=== PATIENT | male | born 1955 | race Caucasian/White ===

== ENCOUNTER 2016-09-13 15:33 | Emergency (ER) | payer OTHER ==
[~2016-09-13] VITALS: Ht 157.5 cm; Wt 110.0 kg
[2016-09-13 15:36] VITALS: BP 136/73; PULSE 100; RESP 18; TEMP 98.1; O2SAT 93
--- NOTE | 2016-09-13 16:27 | PD ---
HPI Chief Complaint: Cold / Flu Symptoms Time Seen by Provider: 16:27 Travel History International Travel<30 days: No Contact w/Intl Traveler<30days: No Traveled to known affect area: No History of Present Illness HPI 61-year-old male presents to the emergency Department with complaint of cough, nasal congestion, throat irritation, headache, body aches since Sunday. Reports cough exacerbations that caused him to become short of breath. Denies shortness of breath on exertion. Denies chest pain. Denies hemoptysis. Has history of blood clots in his leg 20 years ago. Denies anticoagulants. Did travel approximately 16 hours by vehicle on Sunday. Symptoms started Sunday after arrival. Denies leg edema or pain. Reports feeling cold sweats. Has not taken his temperature and cannot reported MAXIMUM TEMPERATURE. Denies wheezing. Started taking a Z-Jorge on Sunday that he was given with no improvement in symptoms. Has not taken any other medications or tried any treatments to alleviate symptoms. Did not receive a flu vaccine. No known allergies. Has primary care provider back home. History of diabetes type 2 and is on metformin. No other modifying factors or associated signs and symptoms. PFSH Past Medical History Diabetes: Yes Social History Tobacco Use: No Allergies-Medications (Allergen,Severity, Reaction): Coded Allergies: No Known Allergies (Unverified , 09/13/16) Reported Meds & Prescriptions Reported Meds & Active Scripts Active Ibuprofen 600 Mg Tab 600 Mg PO Q8HR PRN Nasonex Nasal [place] (Mometasone Furoate) 50 Mcg/Act Naspr 2 [place] EACH NARE DAILY PRN Tessalon Perles (Benzonatate) 100 Mg Cap 100 Mg PO TID PRN Deltasone (Prednisone) 20 Mg Tab 40 Mg PO DAILY 5 Days Proair Hfa 8.5 GM Inh (Albuterol Sulfate) 90 Mcg/Act Aer 2 Puff INH Q4-6H PRN 108 mcg/actuation Reported Ambien (Zolpidem Tartrate) 5 Mg Tab 5 Mg PO HS PRN Glucophage (Metformin HCl) 500 Mg Tab 500 Mg PO DAILY With a meal Review of Systems Except as stated in HPI: all other systems reviewed are Neg Physical Exam Narrative GENERAL: Well-nourished, well-developed male patient, in no acute distress SKIN: Warm and dry. No rash. HEAD: Atraumatic. Normocephalic. EYES: Pupils equal and round at 3 mm with brisk reaction. No scleral icterus. No injection or drainage. PERRLA. ENT: Mucosa pink and moist. No erythema or exudates. No uvular edema. No uvular , palatal, or tonsillar deviation. Airway patent. EARS: Bilateral pinnae and external canals appear within normal limits. Bilateral tympanic membranes without erythema, dullness or perforation. NECK: Trachea midline. No lymphadenopathy. CARDIOVASCULAR: Regular rate and rhythm. No murmur appreciated. RESPIRATORY: No accessory muscle use. Clear to auscultation and decreased in bilateral bases. Breath sounds equal bilaterally. GASTROINTESTINAL: Abdomen soft, non-tender, nondistended. Hepatic and splenic margins not palpable. Bowel sounds are active 4 quadrants. MUSCULOSKELETAL: No obvious deformities. No clubbing. No cyanosis. No edema. NEUROLOGICAL: Awake and alert. Oriented 3. No obvious cranial nerve deficits. Motor grossly within normal limits. Normal speech. Moves all extremities. 5/5 strength to all extremities. PSYCHIATRIC: Appropriate mood and affect; insight and judgment normal. Data Data Last Documented VS Vital Signs Date Time Temp Pulse Resp B/P Pulse Ox O2 Delivery O2 Flow Rate FiO2 09/13/16 17:14 89 95 Room Air 09/13/16 15:36 98.1 18 136/73 Orders Chest, Single Ap (09/13/16 16:27) Albuterol Neb (Albuterol Neb) (09/13/16 16:30) Influenzae A/B Antigen (09/13/16 16:29) MDM Medical Decision Making Medical Screen Exam Complete: Yes Emergency Medical Condition: Yes Medical Record Reviewed: Yes Differential Diagnosis Acute bronchitis, influenza, upper respiratory infection, PE Narrative Course 61-year-old male with cold/flu symptoms since Sunday. Patient is in no acute distress. He appears like he doesn't feel well. He is nontoxic-appearing and afebrile in the ER. I feel his current symptoms are related to a URI of some type and not PE. I discussed my plan of care with Dr. Guardado, and he agreed with my treatment plan. 170: Chest x-ray with no acute disease. She reports improvement in symptoms. Oxygen saturation 95% and heart rate 89bpm. 174: Influenza negative. Suspecting bronchitis. Pro-air Inhaler, Tessalon Perles, Deltasone, Nasonex nasal spray, ibuprofen prescribed for home. Patient verbalizes understanding and agreement with treatment plan. Patient is medically cleared and stable for discharge. Discussed reasons to return to the emergency department. Instructed patient to follow up with primary care provider. Patient agrees with treatment plan. The patients vital signs are stable and the patient is stable for outpatient follow-up and treatment. Patient discharged home, stable and in no acute distress. Diagnosis Primary Impression: Acute bronchitis Qualified Code: J20.9 - Acute bronchitis, unspecified organism Referrals: Primary Care Physician Patient Instructions: General Instructions Additional Instructions: Use Albuterol inhaler as prescribed Take oral steroids as prescribed and complete full course Use Tessalon Perles as prescribed to decrease coughing spasms [id number] decongestants or antihistamines as directed and as needed for symptom management Your cough can last 4-6 weeks Drink plenty of fluids to prevent dehydration Use hot air humidifier to decrease cough exacerbation Turn off ceiling fans and sleep with head of bed elevated Avoid triggers such as second hand smoke, dust, known allergens Follow-up with your primary care provider Return to the emergency department immediately with worsening of symptoms Med/Other Pt SpecificInfo: Prescription(s) given Scripts Ibuprofen 600 Mg Vyp164 Mg PO Q8HR PRN (PAIN) #30 TAB Ref 0 Prov:Opal Gomez 09/13/16 Mometasone Nasal [place] (Nasonex Nasal Austin)50 Mcg/Act Naspr2 [place] EACH NARE DAILY PRN (NASAL CONGESTION) #1 BOTTLE Ref 0 Prov:Opal Gomez 09/13/16 Benzonatate (Tessalon Perles)100 Mg [id number] Mg PO TID PRN (COUGH) #20 CAP Ref 0 Prov:Opal Gomez 09/13/16 Prednisone (Deltasone)20 Mg Tab40 Mg PO DAILY 5 Days Ref 0 Prov:Opal Gomez 09/13/16 Albuterol 8.5 GM Inh (Proair Hfa 8.5 GM Inh)90 Mcg/Act Aer2 Puff INH Q4-6H PRN ( SOB/WHEEZING) #1 INHALER Ref 0 108 mcg/actuation Prov:Opal Gomez 09/13/16 Disposition: 01 DISCHARGE HOME Condition: Stable Opal Gomez Sep 13, 2016 16:27
[2016-09-13] MEDS ORDERED: RESP: ALBUTEROL 2.5 MG/3 ML NEB (SCH) INH ONE (16:30)
--- NOTE | 2016-09-13 16:59 | RADRPT ---
EXAM DATE/TIME: 09/13/2016 16:35 [facility] COMPARISON: No previous studies available for comparison. INDICATIONS : Short of breath, cough. MEDICAL HISTORY : None. SURGICAL HISTORY : None. ENCOUNTER: Initial ACUITY: 2 days PAIN SCORE: 0/10 LOCATION: chest FINDINGS: A single view of the chest demonstrates the lungs to be symmetrically aerated without evidence of mas s, infiltrate or effusion. The cardiomediastinal contours are unremarkable. Osseous structures are intact. CONCLUSION: No acute disease. Mega Thomson MD on September 13, 2016 at 16:58 Board Certified Radiologist. This report was verified electronically.
[2016-09-13 17:14] VITALS: O2SAT 95
[2016-09-13] MEDS ORDERED: MOME17I EACH NARE (17:16)
[2016-09-13] MEDS ORDERED: PRED-503 PO (17:16)
[2016-09-13] MEDS ORDERED: IBUP-232 PO (17:16)
[2016-09-13] MEDS ORDERED: BENZ100 PO (17:16)
[2016-09-13] MEDS ORDERED: ALBUAER3 INH (17:16)
[2016-09-13] MEDS ORDERED: AMBI5TAB PO (17:25)
[2016-09-13] MEDS ORDERED: METF500 PO (17:25)
== END 2016-09-13 17:58 | disposition home or self-care (01) ==
LOC: NETRI 15:33
DX: J20.9 Acute bronchitis, unspecified (principal); E11.9 Type 2 diabetes mellitus without complications; Z79.4 Long term (current) use of insulin
CPT/HCPCS: 71010; 87804; 94664; 99283; J7613